=== PATIENT | male | born 1995 | race Hispanic/Latino ===

== ENCOUNTER → 2024-09-04 | Outpatient (CLI) | payer OTHER ==
--- NOTE | 2024-09-04 15:29 | HMCIMG ---
US SCROTUM & CONTENTS REASON: DISORDER OF MALE GENITAL ORGANS, UNSPECIFIED COMPARISON: None TECHNIQUE: Routine scrotal sonogram was performed. Vascular Doppler evaluation was performed as well using spectral analysis and color flow imaging. FINDINGS: There are normal-appearing testicles, right 3.9 x 3.4 x 2.6 cm and left 4.6 x 2.5 and 2.4 cm. There are are no focal masses. There is normal and symmetrical appearing blood flow. There is a large cyst in the right hemiscrotum measuring 5.8 x 6.5 cm, this may arise from the head of the epididymis. There is no hydrocele or varicocele on the right. Left side appears unremarkable, no cyst, no hydrocele, no varicocele. IMPRESSION: 1. 6.5 cm cyst in the right hemiscrotum, probably arising from the head of the epididymis. 2. Otherwise normal bilateral scrotal sonogram.
--- NOTE | 2024-09-05 08:55 | HMCSR ---
APPROVED REPORT EXAM: Two-dimensional and M-mode echocardiogram with Doppler and color Doppler. INDICATION ICD: R01.2 Other cardiac sounds 2D Dimensions RVDd4.0 cmLVEF(%)64.0 (>50%)LVED Vol(simp.)78.7 mL IVSd0.5 (0.7-1.1cm)FS(%)35 %LVES Vol(simp.)27.7 mL LVDd4.6 (3.8-5.6cm)LA (2D)3.5 (1.6-4.0cm)LVEF(%, simp.)65 % PWd0.6 (0.7-1.1cm)Ao Root(2D)3.1 (2.0-3.7cm)LA ESV INDEX (4CH)26.90 mL/m2 IVSs1.0 cmLVOT diam2.2 (1.8-2.4cm)LA ESV INDEX (2CH)23.40 mL/m2 LVDs3.0 (2.5-4.0cm)LA ESV INDEX (BP)26.30 mL/m2 PWs1.1 cm M-Mode Dimensions EPSS0.4 cm LA (MM)3.8 (1.6-4.0cm) Ao Root(MM)3.1 (2.0-3.7cm) Aortic Valve AoV VTI0.2 mAo Mean GR2.0 mmHgLVOT VTI0.16 m REESE (VMAX)3.0 cm2AVA (VTI) 3.0 cm2 Mitral Valve MV E Vmax66.0 cm/sDECEL Cxou877 ms MV A Vmax36.4 cm/sP 1/2 T46 ms E/A ratio1.8MVA (PHT)4.8 cm2 TDI E/E' Medial5.2E/E' Lateral3.3 Medial E' Peak V12.70 cm/sLateral E' Peak V20.30 cm/s Lateral A' Peak V10.10 cm/s Lateral E'/A' 2.0 Tricuspid Valve TR Vmax1.9 m/s TR Peak GR14.5 mmHg Left Ventricle The left ventricle is normal size. There is normal left ventricular wall thickness. LVEF is 60-65%. T he left ventricular diastolic function is normal. Right Ventricle The right ventricle is normal size. The right ventricular systolic function is normal. Atria The left atrium size is normal. The right atrium size is normal. Aortic Valve The aortic valve is trileaflet normal in structure. No aortic regurgitation is present. No aortic lily vular vegetation noted. There is no aortic valvular stenosis. Mitral Valve The mitral valve is normal in structure and function. There is no mitral valve regurgitation noted. T here are no mitral valve vegetation noted. There is no mitral valve stenosis. Tricuspid Valve The tricuspid valve is normal in structure. There is trace of tricuspid valve regurgitation noted. Th ere is no tricuspid valve vegetation. Pulmonic Valve The pulmonary valve is normal in structure. There is trace/physiologic pulmonic valvular regurgitatio n. Great Vessels The aortic root is normal in size. The IVC is normal in size and collapses >50% with inspiration. Pericardium There is no pericardial effusion. Other Information Quality : AdequateRhythm : NSR Conclusion LVEF is 60-65%. The left ventricular diastolic function is normal. No significant valvular abnormalities
== END | disposition home or self-care (01) ==
LOC: RAH 13:24
PROVIDERS: ATTEND Family Medicine
DX: N50.9 Disorder of male genital organs, unspecified (principal); R01.2 Other cardiac sounds
CPT/HCPCS: 76870; 93306